=== PATIENT | female | born 1970 | race Caucasian/White ===

== ENCOUNTER 2016-03-31 06:42 | Emergency (ER) | payer OTHER ==
[~2016-03-31] VITALS: Ht 160 cm; Wt 74.8 kg
--- NOTE | 2016-03-31 07:32 | RADIOLOGY REPORT ---
EXAMINATION: XR FINGER, RIGHT CLINICAL INFORMATION: Pain. Deformity. COMPARISON: None TECHNIQUE: Three views of the right hand fifth digit. FINDINGS: There is no evidence of acute fracture or dislocation. There is fixed flexion of the fifth digit at the distal interphalangeal joint. Mild soft tissue swelling is noted. Remaining joint spaces that are visualized are maintained. IMPRESSION: No acute fracture or dislocation. Fixed flexion of the fifth digit distal interphalangeal joint.
--- NOTE | 2016-03-31 07:52 | ED GENERAL ADULT ---
History of Present Illness General Chief Complaint: Hand or Wrist Injury Stated Complaint: RT PINKY FINGER INJURY ? FX Source: patient Exam Limitations: no limitations Triage Note: PT TO ED C/O RT PINKY PAIN AND DEFORMITY S/P "STUBBING IT" 45 MINS SODDER. PATIENT STATES "THE TIP IS AT A 45 DEGREE ANGLE" HAS FINGER WRAPPED SODDER Triage Nurses Notes Reviewed? yes HPI: 45-year-old woman seen for evaluation of a right pinky injury. She reports that she was at home and her daughter's bedroom when she went to step on the on switched for a light that was on the floor when she tripped on an object. She went to brace her fall on the rocking chair that was by her but ended up "stubbing" her pinky right into the back of the chair. She denies any other injuries at this time. She expresses severe pain in the digit with hyperextension but otherwise denies any complaints. She came to the [place] ED for evaluation for fear of fracture. (MICHAELA ISLAS MD) Vital Signs & Intake/Output Vital Signs & Intake/Output Vital Signs Date Time Temp Pulse Resp B/P Pulse O2 O2 Flow FiO2 Ox Delivery Rate 03/31 0800 98.2 90 20 116/80 98 Room Air 03/31 0651 98.2 94 18 113/79 97 Room Air Allergies Coded Allergies: oxycodone (Severe, ANAPHYLAXIS 03/31/16) tramadol (Severe, PASSES OUT 03/31/16) adhesive (Mild, RASH/BLISTERS 03/31/16) amoxicillin (From AUGMENTIN) (UNKNOWN 03/31/16) clavulanic acid (From AUGMENTIN) (UNKNOWN 03/31/16) (EDELMIRA OSCAR MD) Past History Travel History Traveled to [place] past 21 day No Medical History Any Pertinent Medical History? see below for history Gastrointestinal: ulcerative colitis History of MRSA: No History of VRE: No History of CDIFF: Yes Influenza Vaccine: 11/07/12 Surgical History Surgical History: non-contributory Psychosocial History Who do you live with Family Services at Home None What is your primary language Turkish Tobacco Use: Quit >30 days ago ETOH Use: occasional use Illicit Drug Use: denies illicit drug use Family History Family History, If Any: MOTHER FH: colon cancer Hx Contributory? No (MICHAELA ISLAS MD) Review of Systems Review of Systems Constitutional: Reports: see HPI. (MICHAELA ISLAS MD) Review of Systems Constitutional: Reports: no symptoms. EENTM: Reports: no symptoms. Respiratory: Reports: no symptoms. Cardiovascular: Reports: no symptoms. GI: Reports: no symptoms. Genitourinary: Reports: no symptoms. Musculoskeletal: Reports: see HPI, joint pain. Skin: Reports: no symptoms. Neurological/Psychological: Reports: no symptoms. Hematologic/Endocrine: Reports: no symptoms. Immunologic/Allergic: Reports: no symptoms. All Other Systems: Reviewed and Negative (EDELMIRA OSCAR MD) Physical Exam Physical Exam General Appearance: well developed/nourished, no apparent distress, alert, awake Comments: General -well-developed, well-nourished middle-aged woman in no acute distress HEENT - NCAT, PERRL, EOMI, anicteric sclera Neuro - Awake and alert, CN II - XII grossly intact Extremities - normal pulses, no cyanosis/clubbing/edema, right pinky with distal phalanx flexion, sensation intact, tender to palpation, no obvious deformity/ bruising Core Measures ACS in differential dx? No CVA/TIA Diagnosis: No Severe Sepsis Present: No Septic Shock Present: No (MICHAELA ISLAS MD) Progress Differential Diagnoses I considered the following diagnoses in my evaluation of the patient: Ligament sprain/strain Plan of Care: Given patient's mechanism of injury and x-ray of the hand was obtained to rule out an occult avulsion fracture. Radiograph did not demonstrate any kind of fracture or dislocation. 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 Patient was advised to take NSAIDs for pain relief should she require them, maintain the digit in a splint and apply ice as needed with follow-up at her primary care provider's office for further evaluation. Initial ED EKG: none (MICHAELA ISLAS MD) Differential Diagnoses I considered the following diagnoses in my evaluation of the patient: Diagnostic Imaging: Viewed by Me: Radiology Read. Discussed w/RAD: Radiology Read. Radiology Impression: No acute fracture or dislocation. Fixed flexion of the fifth digit distal interphalangeal joint. (EDELMIRA OSCAR MD) Departure Departure Disposition: HOME OR SELF CARE Condition: Stable Clinical Impression Primary Impression: Mallet deformity of right little finger Referrals: CHAY DIAZ MD (PCP/Family) Additional Instructions: Keep pinky in splint, use NSAID medication such as ibuprofen, Aleve, Motrin for pain relief should you require them, avoid reinjuring the area if possible, apply ice as needed. Follow-up with your primary care provider after discharge for further evaluation and care. Seek a referral to an orthopedist should your condition not improve on its own. Departure Forms: Customer Survey General Discharge Information (MICHAELA ISLAS MD) Resident Co-Sign Statement Statement: ED Attending supervision documentation- x I saw and evaluated the patient. I have also reviewed all the pertinent lab results and diagnostic results. I agree with the findings and the plan of care as documented in the Resident's documentation. [] I have reviewed the ED Record and agree with the Resident's documentation. [] Additions or exceptions (if any) to the Resident's note and plan are summarized below: [] (EDELMIRA OSCAR MD) Procedures Splinting Location: right little finger Manual Alignment Performed: No Pre-Made Type: metal Splint: finger Splint Applied By: splint applied by other Pre-Proc Neuro Vasc Exam: normal Post-Proc Neuro Vasc Exam: normal (EDELMIRA OSCAR MD) Critical Care Note Critical Care Note Critical Care Time: non-applicable (MICHAELA ISLAS MD)
[2016-03-31 08:00] VITALS: BP 116/80
== END 2016-03-31 08:01 ==
LOC: ERH 06:42
DX: M20.011 Mallet finger of right finger(s) (principal); W18.09XA Striking against other object with subsequent fall, initial encounter
CPT/HCPCS: 73140-RT